=== PATIENT | female | born 1940 | race Caucasian/White ===

== ENCOUNTER 2016-09-30 21:52 | Emergency (ER) | payer BC, MEDICARE ==
--- NOTE | 2016-09-30 22:42 | ERPHSYRPT ---
- History of Present Illness Time Seen by Provider: 09/30/16 22:31 Source: patient Exam Limitations: no limitations Patient Subjective Stated Complaint: PT STATES THAT LAST NIGHT HER LEFT LEG BEGAN TO HURT, SHE WAS UNABLE TO SLEEP DUE TO THE PAIN. REPORTS TODAY SHE HAS NOTICED SEVERAL "BLOOD BLISTERS" TO THE LEFT, LOWER LEG. Triage Nursing Assessment: PT IS AOX3, AMBULATORY TO COT WITH NO DIFFICULTIES, RESPS ARE EASY AND NON LABORED, LUNG SOUNDS ARE CLEAR THROUGHOUT ALL HOWARD, RADIAL PULSES ARE STRONG AND EQUAL. PEDAL PULSES ARE STRONG AND REGULAR. SLIGHT NON-PITTING EDEMA NOTED TO BILATERAL LOWER EXTREMITIES WITH THE LEFT LOWER EXTREMITY BEING MORE PROMINENT. PAIN LOCALIZED TO THE LEFT CALF. SEVERAL SMALL RED AREAS NOTED TO THE LEFT LATERAL LEG. Physician History: 76-year-old white female arrives with complaints that last night she was having pain in her left leg especially in the calf and then today she noted several what appears to be ruptured varicosities on her left leg. Patient arrives with complaints that she is worried about having a DVT she is does state that she has some posterior calf pain which is worse when she dorsiflexes her left ankle. She is not having shortness of breath no chest pain no abdominal pain no nausea no vomiting no other complaints. Patient is on Plavix she does not take aspirin she is not on any other anticoagulants. Past medical history includes migraines, seizures, coronary artery disease, coronary artery stents, high blood pressure, diabetes type 2, arthritis, depression, degenerative disc disease, GERD, anxiety, depression. , Past surgical history includes cardiac catheter, cardiac stents, cholecystectomy, hysterectomy, back surgery. Method of Injury: unknown Occurred: yesterday Quality: other (worse yesterday improving today) Severity of Pain-Max: moderate Severity of Pain-Current: mild Lower Extremities Pain: leg: left Modifying Factors: Improves With: nothing Associated Symptoms: other (pain left calf) Allergies/Adverse Reactions: aspirin Allergy (Mild, Verified 02/19/12 08:08) celecoxib [From Celebrex] Allergy (Mild, Verified 02/19/12 08:08) codeine [Codeine] Allergy (Mild, Verified 02/19/12 08:08) Sulfa (Sulfonamide Antibiotics) [Sulfa(Sulfonamide Antibiotics)] Allergy (Mild, Verified 02/19/12 08:08) Home Medications: Clopidogrel Bisulfate 75 mg [PLAVIX 75 MG Tablet] 75 mg PO BID 09/30/16 [ History] Esomeprazole Magnesium [Nexium] 40 mg PO DAILY 09/30/16 [History] Gabapentin [Neurontin] 300 mg PO TID 09/30/16 [History] Levocetirizine Dihydrochloride 5 mg PO DAILY 09/30/16 [History] Metformin HCl 500 mg [Glucophage 500 MG] 500 mg PO DAILY 09/30/16 [History ] Metoprolol Tartrate 50 mg [Lopressor 50 MG] 50 mg PO BID 09/30/16 [History ] Piroxicam 20 mg PO HS 09/30/16 [History] Rosuvastatin Calcium [Crestor] 10 mg PO HS 09/30/16 [History] Tramadol HCl 50 mg [Ultram 50 mg] 50 mg PO Q6H PRN PRN 09/30/16 [History] Valsartan/Hydrochlorothiazide [Valsartan-Hctz 320-12.5 mg Tab] 1 each PO DAILY 09/30/16 [History] Hx Tetanus, Diphtheria Vaccination/Date Given: Yes Hx Influenza Vaccination/Date Given: Yes Hx Pneumococcal Vaccination/Date Given: Yes Immunizations Up to Date: Yes - Review of Systems Constitutional: No Fever, No Chills Eyes: No Symptoms Ears, Nose, & Throat: No Symptoms Respiratory: No Cough, No Dyspnea Cardiac: No Chest Pain, No Edema, No Syncope Abdominal/Gastrointestinal: No Abdominal Pain, No Nausea, No Vomiting, No Diarrhea Genitourinary Symptoms: No Dysuria Musculoskeletal: Other (pain left foot) Skin: Other (multiple what appear to be ruptured varicosities left leg) Neurological: No Dizziness, No Focal Weakness, No Sensory Changes Psychological: No Symptoms Endocrine: No Symptoms All Other Systems: Reviewed and Negative - Past Medical History Pertinent Past Medical History: Yes Neurological History: Seizures ENT History: Other Cardiac History: Hypertension, Other Respiratory History: No Pertinent History Endocrine Medical History: Diabetes Type II Musculoskeletal History: Fractures, Osteoarthritis GI Medical History: GERD History: Other Psycho-Social History: Anxiety, Depression Other Medical History: Pt has a stint in her heart. Notes previous fractured B ankles, L TKA - Past Surgical History Past Surgical History: Yes Cardiac: Cardiac Catheterization, Cardiac Stent Gastrointestinal: Cholecystectomy Musculoskeletal: Joint Replacement Female Surgical History: Hysterectomy Other Surgical History: BACK SURGERY X4 - Social History Smoking Status: Never smoker Exposure to second hand smoke: No Drug Use: none Patient Lives Alone: No - Nursing Vital Signs Nursing Vital Signs: Initial Vital Signs Temperature 98.6 F Temperature Source Oral Pulse Rate 66 Respiratory Rate 18 Blood Pressure [Left Arm] 161/76 Pain Intensity 0 - Physical Exam General Appearance: alert Eyes, Ears, Nose, Throat Exam: moist mucous membranes Neck Exam: non-tender, supple Cardiovascular/Respiratory Exam: chest non-tender, normal breath sounds, regular rate/rhythm, no respiratory distress Gastrointestinal/Abdominal Exam: non-tender, guarding Back Exam: normal inspection, No vertebral tenderness Hips Exam: bilateral: non-tender, normal inspection, normal range of motion, no evidence of injury Legs Exam: left leg: pain (pain left calf with palpation and dorsiflexion), bilateral leg: normal range of motion, no evidence of injury, other (multiple varicosities lower extremities) Knees Exam: bilateral knee: non-tender, normal inspection, normal range of motion, no evidence of injury Ankle Exam: bilateral ankle: non-tender, normal inspection, normal range of motion, no evidence of injury Foot Exam: bilateral foot: non-tender, normal inspection, normal range of motion , no evidence of injury DTR - Lower Extremities Exam: ankle (R): 2+, ankle (L): 2+ Neuro/Tendon Exam: normal sensation, normal motor functions Mental Status Exam: alert, oriented x 3, cooperative Skin Exam: normal color, other (multiple varicosities lower extremities several small ruptured varicosities left lower leg.) SpO2 Interpretation: normal SpO2: 95 Oxygen Delivery: Room Air - Course Nursing assessment & vital signs reviewed: Yes Ordered Tests: Active Orders 24 hr Category Date Time Status IV Insertion STAT Care 09/30/16 22:37 Active CBC W DIFF Stat Lab 09/30/16 22:48 Completed CMP Stat Lab 09/30/16 22:48 Completed D-DIMER QUANTITATION Stat Lab 09/30/16 22:48 Completed PROTIME WITH INR Stat Lab 09/30/16 22:48 Completed PTT Stat Lab 09/30/16 22:48 Completed Lab/Rad Data: Laboratory Result Diagrams 09/30/16 22:48 09/30/16 22:48 Laboratory Results 07/11/17 07/11/17 07/11/17 Range/Units 22:48 22:48 22:48 WBC 8.9 (4.0-10.5) K/mm3 RBC 4.09 L (4.1-5.4) M/mm3 Hgb 13.4 (12.0-16.0) gm/dl Hct 40.3 (35-47) % MCV 98.5 (78-100) fl MCH 32.7 H (26-32) pg MCHC 33.3 (32-36) g/dl RDW 14.3 H (11.5-14.0) % Plt Count 274 (150-450) K/mm3 MPV 9.5 (6-9.5) fl Gran % 56.2 (36.0-66.0) % Lymphocytes % 30.6 (24.0-44.0) % Monocytes % 10.3 (0.0-12.0) % Eosinophils % 2.8 (0.00-5.0) % Basophils % 0.1 (0.0-0.4) % Basophils # 0.01 (0-0.4) INR 0.96 (0.8-3.0) APTT 31.8 (25.3-37.0) SECONDS D-Dimer 298 (0-500) ng/mL Sodium 143 (136-145) mEq/L Potassium 4.1 (3.5-5.1) mEq/L Chloride 106 (98-107) mEq/L Carbon Dioxide 26.8 (21-32) mEq/L Anion Gap 14.0 (5-15) MEQ/L BUN 26 H (9-20) mg/dL Creatinine 1.14 (0.55-1.30) mg/dl Estimated GFR 50 ML/MIN Glucose 139 H (70-110) MG/DL Calcium 9.5 (8.5-10.1) mg/dL Total Bilirubin 0.40 (0.2-1.0) mg/dL AST 14 L (15-37) U/L ALT 24 (12-78) U/L Alkaline Phosphatase 86 (46-116) U/L Serum Total Protein 6.7 (6.4-8.2) gm/dL Albumin 3.9 (3.4-5.0) g/dL - Progress Progress: improved Progress Note: 09/30/16 23:25 76-year-old white female with the posterior leg (calf) pain yesterday which seems to be improving noted to have what appears to be some ruptured varicosities on the left lower leg today which appear to be stable on examination. Patient is concerned about possible blood clot she did have a positive Homans sign at home she has some tenderness in her calf and stated that she had pain with dorsiflexion of her left ankle dorsal pedal posterior tibial pulses were intact. Patient had a normal d-dimer of 298 INR is 0.96 chemistry essentially normal with the exception of a BUN of 26 and a creatinine of 1.14 and a glucose of 139. Patient is actually states she is feeling much better she was yesterday. Will go ahead and discharge the patient. Return home rest elevate her leg. Tylenol every 4 hours as needed for pain. Patient to follow-up with her family doctor if symptoms persist more than 24- 48 hours or problems. She is to return for acute distress or for severe symptoms. - Departure Time of Disposition: 23:28 Departure Disposition: Home Clinical Impression: Left leg pain, ruptured varicosities left leg Condition: Fair Critical Care Time: No Referrals: LUIS M BRANHAM [Primary Care Provider] - Additional Instructions: Return home. Elevate your left leg 24-48 hours. Tylenol every 4 hours as needed for pain. Follow-up with your family doctor if symptoms are worse no better in 24-48 hours or persist longer than 72 hours. Return for acute distress or for severe symptoms.
[2016-09-30 22:53] LABS: BASOPHIL % 0.1 % (0.0-0.4); Eosinophil % 2.8 % (0.00-5.0); Granulocytes % 56.2 % (36.0-66.0); Lymphocytes % 30.6 % (24.0-44.0); Mean Cell Volume 98.5 fl (78-100); Mean Platelet Volume 9.5 fl (6-9.5); Monocytes % 10.3 % (0.0-12.0); Platelet Count 274 K/mm3 (150-450); Red Blood Count 4.09 M/mm3 (4.1-5.4); Red Cell Distribution Width 14.3 % (11.5-14.0); White Blood Count 8.9 K/mm3 (4.0-10.5)
[2016-09-30 23:00] LABS: Mean Corpuscular Hemoglobin 32.7 pg (26-32)
[2016-09-30 23:04] LABS: INR 0.96 (0.8-3.0); PROTIME 10.8 SECONDS (9.95-12.35)
[2016-09-30 23:07] LABS: PTT 31.8 SECONDS (25.3-37.0)
[2016-09-30 23:12] LABS: ALBUMIN 3.9 g/dL (3.4-5.0); BILIRUBIN,TOTAL 0.4 mg/dL (0.2-1.0); Carbon Dioxide 26.8 mEq/L (21-32); Potassium 4.1 mEq/L (3.5-5.1); Total Protein 6.7 gm/dL (6.4-8.2)
[2016-09-30 23:50] VITALS: BP 170/90; PULSE 72; O2SAT 97
== END 2016-09-30 23:50 | disposition home or self-care (01) ==
LOC: ED 21:52
DX: M79.605 Pain in left leg (principal); I83.812 Varicose veins of left lower extremity with pain; I25.10 Atherosclerotic heart disease of native coronary artery without angina pectoris; I10 Essential (primary) hypertension; E11.9 Type 2 diabetes mellitus without complications; Z79.899 Other long term (current) drug therapy
CPT/HCPCS: 36415; 80053; 85025; 85379; 85610; 85730; 99281; 99282

== ENCOUNTER 2016-11-20 11:07 | Emergency (ER) | payer BC, MEDICARE ==
[2016-11-20 11:21] VITALS: PULSE 70
[2016-11-20] MEDS ORDERED: Adacel Vial IM ONE ×2 (11:29→11:36)
--- NOTE | 2016-11-20 11:35 | ERPHSYRPT ---
- History of Present Illness Time Seen by Provider: 11/20/16 11:24 Source: patient, family () Patient Subjective Stated Complaint: "I was scratched by my cat and it will not stop bleeding" Triage Nursing Assessment: Pt alert and oriented X 3, skin pwd pt ambulates without diffculty, able to speak in full sentences. pt has approx 1.5 inch scratch on rt ankle, bleeding is controlled with pressure. Physician History: CC: cat scratch Hx: 76 y/o patient of Dr Branham was scratched on the right ankle this AM by a new cat. It was bleeding so came to ER. She takes plavix. Unsure last tetanus. Not allergic to PCN. No other injuries. Bleeding better since arrival in ER. Occurred: just prior to arrival Allergies/Adverse Reactions: aspirin Allergy (Mild, Verified 02/19/12 08:08) celecoxib [From Celebrex] Allergy (Mild, Verified 02/19/12 08:08) codeine [Codeine] Allergy (Mild, Verified 02/19/12 08:08) Sulfa (Sulfonamide Antibiotics) [Sulfa(Sulfonamide Antibiotics)] Allergy (Mild, Verified 11/20/16 11:20) Home Medications: Clopidogrel Bisulfate 75 mg [PLAVIX 75 MG Tablet] 75 mg PO BID 09/30/16 [ History] Esomeprazole Magnesium [Nexium] 40 mg PO DAILY 09/30/16 [History] Gabapentin [Neurontin] 300 mg PO TID 09/30/16 [History] Metformin HCl 500 mg [Glucophage 500 MG] 500 mg PO DAILY 09/30/16 [History ] Metoprolol Tartrate 50 mg [Lopressor 50 MG] 50 mg PO BID 09/30/16 [History ] Rosuvastatin Calcium [Crestor] 10 mg PO HS 09/30/16 [History] Valsartan/Hydrochlorothiazide [Valsartan-Hctz 320-12.5 mg Tab] 1 each PO DAILY 09/30/16 [History] Hx Tetanus, Diphtheria Vaccination/Date Given: No Hx Influenza Vaccination/Date Given: Yes Hx Pneumococcal Vaccination/Date Given: Yes Immunizations Up to Date: Yes - Review of Systems Constitutional: No Symptoms Respiratory: No Dyspnea Abdominal/Gastrointestinal: No Nausea, No Vomiting Skin: Skin Lesions (cat scratches) Neurological: No Focal Weakness, No Parasthesia - Past Medical History Pertinent Past Medical History: Yes Neurological History: Seizures ENT History: Other Cardiac History: Hypertension, Other Respiratory History: No Pertinent History Endocrine Medical History: Diabetes Type II Musculoskeletal History: Fractures, Osteoarthritis GI Medical History: GERD History: Other Psycho-Social History: Anxiety, Depression Other Medical History: Cardiac stenting. 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) - Nursing Vital Signs Nursing Vital Signs: Initial Vital Signs Temperature 98.2 F 11/20/16 11:15 Pulse Rate 70 11/20/16 11:15 Respiratory Rate 18 11/20/16 11:15 Blood Pressure 193/91 11/20/16 11:15 O2 Sat by Pulse Oximetry 95 11/20/16 11:15 Pain Scale Pain Intensity 0 - Physical Exam General Appearance: alert, other (pleasant lady) Cardiovascular/Respiratory Exam: regular rate/rhythm Neuro/Tendon Exam: normal sensation, normal motor functions Mental Status Exam: alert, oriented x 3, cooperative Skin Exam: warm, dry SpO2 Interpretation: normal SpO2: 95 Oxygen Delivery: Room Air Comments: 2 scratches left medial ankle area. Bleeding controlled. Linear. No FB noted. Pulses intact. Trace edema both legs. - Course Nursing assessment & vital signs reviewed: Yes Ordered Tests: Active Orders 24 hr Category Date Time Status Wound Care STAT Care 11/20/16 11:29 Active - Progress Progress Note: 11/20/16 11:33 Will update tetanus, cleanse, dressing. Counseled pt/family regarding: diagnosis, need for follow-up - Departure Time of Disposition: 11:33 Departure Disposition: Home Clinical Impression: cat scratch left ankle Condition: Stable Critical Care Time: No Referrals: LUIS M BRANHAM [Primary Care Provider] - Instructions: Abrasion Additional Instructions: Rx augmentin. Change dressing daily starting tomorrow. Make sure no sign of infection. Prescriptions: Amox Tr/Potass Clav. 875 mg [Augmentin 875-125 Tablet] 875 mg PO BID #10 tablet
[2016-11-20 11:53] VITALS: BP 190/88; O2SAT 99
== END 2016-11-20 11:57 | disposition home or self-care (01) ==
LOC: ED 11:07
DX: S90.512A Abrasion, left ankle, initial encounter (principal); W55.03XA Scratched by cat, initial encounter; I10 Essential (primary) hypertension; E11.9 Type 2 diabetes mellitus without complications
CPT/HCPCS: 90471; 90715; 99283

== ENCOUNTER 2017-09-05 22:33 | Emergency (ER) | payer MEDICARE ==
[2017-09-05 22:44] VITALS: BP 189/89; PULSE 74; O2SAT 95
[2017-09-05] MEDS ORDERED: BENADRYL 50 MG/ML IM ONE (22:53)
[2017-09-05] MEDS ORDERED: solu-MEDROL 125 MG IM ONE (22:53)
[2017-09-05] MEDS ORDERED: BENADRYL 50 MG/ML ONE (22:56)
[2017-09-05] MEDS ORDERED: solu-MEDROL 125 MG ONE (22:56)
--- NOTE | 2017-09-05 22:59 | ERPHSYRPT ---
- History of Present Illness Time Seen by Provider: 09/05/17 22:48 Source: patient Exam Limitations: no limitations Patient Subjective Stated Complaint: pt reports taking new cholesterol medication "Zetia" approx one week ago, began itching. reports she stopped taking it and her itching improved, reports her doctor told her to resume the medication and she is started with itching once again. states she cannot sleep due to itching. Triage Nursing Assessment: pt is aox3, pupils perrl, resps easy and non labored , lung sounds are clear throughout, pt afebrile, radial pulses strong and equal.abd is soft and non tender. pt skin is pink warm and dry. diffuse hives noted to the arms, legs and back. skin is intact. Physician History: 77-year-old white female arrives with complaint of itching and a rash symptoms since today. According to the patient she was placed on a new cholesterol medicine one week ago (Zetia), she states that she developed a rash she was told by her physician stopped taking it in the rash went away. Patient states that she took another one today now she has a rash again he states she is itching. She feels like she cannot sleep because of the itching. She does not have any shortness of breath. Rash is located on her back, arms, legs. Past medical history includes high blood pressure, GERD, arthritis, anxiety, depression, cardiac stent Diabetes type 2 controlled with metformin Past surgical history includes cardiac catheter, cardiac stent, cholecystectomy , hysterectomy, back surgery Timing/Duration: other (symptoms one week ago after takingZetia, resolved after stopping, resumed after taking it again today) Modifying Factors: Improves With: medication (zetia) Associated Symptoms: rash (rash on arms, legs, back), No nausea, No vomiting, No abdominal pain, No shortness of breath, No heartburn, No diaphoresis, No cough, No chills, No chest pain, No fever, No headaches, No loss of appetite, No malaise, No syncope, No seizure Allergies/Adverse Reactions: aspirin Allergy (Mild, Verified 02/19/12 08:08) celecoxib [From Celebrex] Allergy (Mild, Verified 02/19/12 08:08) codeine [Codeine] Allergy (Mild, Verified 02/19/12 08:08) Sulfa (Sulfonamide Antibiotics) [Sulfa(Sulfonamide Antibiotics)] Allergy (Mild, Verified 11/20/16 11:20) Iodinated Contrast- Oral and IV Dye Allergy (Verified 09/05/17 22:45) Home Medications: Clopidogrel Bisulfate 75 mg [PLAVIX 75 MG Tablet] 75 mg PO BID 09/30/16 [ History] Esomeprazole Magnesium [Nexium] 40 mg PO DAILY 09/30/16 [History] Gabapentin [Neurontin] 300 mg PO TID 09/30/16 [History] Metformin HCl 500 mg [Glucophage 500 MG] 500 mg PO DAILY 09/30/16 [History ] Metoprolol Tartrate 50 mg [Lopressor 50 MG] 50 mg PO BID 09/30/16 [History ] Rosuvastatin Calcium [Crestor] 10 mg PO HS 09/30/16 [History] Valsartan/Hydrochlorothiazide [Valsartan-Hctz 320-12.5 mg Tab] 1 each PO DAILY 09/30/16 [History] Hx Tetanus, Diphtheria Vaccination/Date Given: Yes Hx Influenza Vaccination/Date Given: No Hx Pneumococcal Vaccination/Date Given: No Immunizations Up to Date: Yes - Review of Systems Constitutional: No Fever, No Chills Eyes: No Symptoms Ears, Nose, & Throat: No Symptoms Respiratory: No Cough, No Dyspnea Cardiac: No Chest Pain, No Edema, No Syncope Abdominal/Gastrointestinal: No Abdominal Pain, No Nausea, No Vomiting, No Diarrhea Genitourinary Symptoms: No Dysuria Musculoskeletal: No Back Pain, No Neck Pain Skin: Rash (rash on arms, legs, back itching) Neurological: No Dizziness, No Focal Weakness, No Sensory Changes Psychological: No Symptoms Endocrine: No Symptoms All Other Systems: Reviewed and Negative - Past Medical History Pertinent Past Medical History: Yes Neurological History: Seizures ENT History: Other Cardiac History: Hypertension, Other Respiratory History: No Pertinent History Endocrine Medical History: Diabetes Type II Musculoskeletal History: Fractures, Osteoarthritis GI Medical History: GERD History: Other Psycho-Social History: Anxiety, Depression Other Medical History: Cardiac stenting. 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 - Female History Hx Now: No - Nursing Vital Signs Nursing Vital Signs: Initial Vital Signs Temperature 98.1 F 09/05/17 22:36 Pulse Rate 74 09/05/17 22:36 Respiratory Rate 20 09/05/17 22:36 Blood Pressure 189/89 09/05/17 22:36 O2 Sat by Pulse Oximetry 95 09/05/17 22:36 - Physical Exam General Appearance: no apparent distress, alert Eye Exam: PERRL/EOMI, eyes nml inspection Ears, Nose, Throat Exam: normal ENT inspection, TMs normal, pharynx normal, moist mucous membranes Neck Exam: normal inspection, non-tender, supple, full range of motion Respiratory Exam: normal breath sounds, lungs clear, No respiratory distress Cardiovascular Exam: regular rate/rhythm, normal heart sounds, normal peripheral pulses Gastrointestinal/Abdomen Exam: soft, normal bowel sounds, No tenderness, No mass Back Exam: normal inspection, normal range of motion, No CVA tenderness, No vertebral tenderness Extremity Exam: normal inspection, normal range of motion, pelvis stable Neurologic Exam: alert, oriented x 3, cooperative, 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 as tested, normal mood/affect, nml cerebellar function, nml station & gait, sensation nml, No motor deficits Skin Exam: warm, rash (erythematous raised rash on back, arms , legs) SpO2 Interpretation: normal (95%) SpO2: 95 Oxygen Delivery: Room Air - Course Nursing assessment & vital signs reviewed: Yes Ordered Tests: Medication Summary Generic Name Dose Route Start Last Admin Trade Name Tomq PRN Reason Stop Dose Admin Diphenhydramine HCl 50 mg 09/05/17 22:53 Benadryl 50 Mg/Ml IM 09/05/17 22:54 STAT ONE Methylprednisolone Sodium Succinate 125 mg 09/05/17 22:53 Solu-Medrol 125 Mg IM 09/05/17 22:54 STAT ONE - Progress Progress: improved Progress Note: 09/05/17 22:59 This is a 77-year-old white female who arrives with complaint of a rash after taking Zetia, this occurred initially one week ago and resolved after stopping the medicine. She took Zetia again today and developed a rash. She has an erythematous raised rash on her arms, legs, back which is itching her. She states she cannot sleep because of this. Patient does have diabetes type 2 and takes metformin for this. Will go ahead and give patient one injection of Solu-Medrol 125 mg IM. Will give patient Benadryl 50 mg IM. Patient to stop Zetia, continue Benadryl 25-50 mg orally every 6 hours for 2-3 days. Follow-up with her family doctor. - Departure Time of Disposition: 23:01 Departure Disposition: Home Clinical Impression: Rash Allergic reaction caused by a drug Qualifiers: Encounter type: initial encounter Qualified Code(s): T78.40XA - Allergy, unspecified, initial encounter Condition: Fair Critical Care Time: No Referrals: DAVID OLIVO [Primary Care Provider] - Instructions: Adverse Drug Reactions, Adult (DC) Additional Instructions: Return home. Stop Zetia Plenty of fluids. Benadryl 25-50 mg orally every 6 hours. Follow-up with your family doctor. Return for acute distress or for severe symptoms.
[2017-09-05] MEDS ORDERED: BENADRYL 25 MG CAPSULE PO ONE (23:09)
[2017-09-05] MEDS ORDERED: BENADRYL 25 MG CAPSULE ONE (23:12)
== END 2017-09-05 23:18 | disposition home or self-care (01) ==
LOC: ED 22:33
DX: L27.0 Generalized skin eruption due to drugs and medicaments taken internally (principal); T46.6X5A Adverse effect of antihyperlipidemic and antiarteriosclerotic drugs, initial encounter; E11.9 Type 2 diabetes mellitus without complications; Z79.84 Long term (current) use of oral hypoglycemic drugs; Z79.01 Long term (current) use of anticoagulants; Z79.899 Other long term (current) drug therapy
CPT/HCPCS: 96372; 99284; J1200; J2930; A9270-GY

== ENCOUNTER 2020-10-26 19:33 | Emergency (ER) | payer MEDICARE ==
--- NOTE | 2020-10-26 19:45 | ERPHSYRPT ---
- History of Present Illness Time Seen by Provider: 10/26/20 19:45 Source: patient, family Exam Limitations: no limitations Physician History: This is a pleasant 80-year-old white female who is right-handed and was out fishing when she slipped and fell and got her left index finger caught in a guardrail. She has a laceration present. She is on Plavix. She was concerned that she might need stitches. She has full control of her left index finger. She did not hit her head. She has no loss of consciousness. Her tetanus status is up-to-date. Timing/Duration: today Quality: painful Severity: mild Location: hands (Left index finger, palmar aspect, distal) Associated Symptoms: denies symptoms Allergies/Adverse Reactions: aspirin Allergy (Mild, Verified 10/26/20 19:50) celecoxib [From Celebrex] Allergy (Mild, Verified 10/26/20 19:50) codeine [Codeine] Allergy (Mild, Verified 10/26/20 19:50) Sulfa (Sulfonamide Antibiotics) [Sulfa(Sulfonamide Antibiotics)] Allergy (Mild, Verified 10/26/20 19:50) Iodinated Contrast Media [Iodinated Contrast- Oral and IV Dye] Allergy (Verified 10/26/20 19:50) Home Medications: Clopidogrel Bisulfate 75 mg [PLAVIX 75 MG Tablet] 75 mg PO BID 09/30/16 [History] Esomeprazole Magnesium [Nexium] 40 mg PO DAILY 09/30/16 [History] Gabapentin [Neurontin] 300 mg PO TID 09/30/16 [History] Metformin HCl 500 mg [Glucophage 500 MG] 500 mg PO DAILY 09/30/16 [History] Metoprolol Tartrate 50 mg [Lopressor 50 MG] 50 mg PO BID 09/30/16 [History] Rosuvastatin Calcium [Crestor] 10 mg PO HS 09/30/16 [History] Valsartan/Hydrochlorothiazide [Valsartan-Hctz 320-12.5 mg Tab] 1 each PO DAILY 09/30/16 [History] Hx Tetanus, Diphtheria Vaccination/Date Given: Yes Hx Influenza Vaccination/Date Given: No Hx Pneumococcal Vaccination/Date Given: No Travel Risk - International Travel Have you traveled outside of the country in past 3 weeks: No - Coronavirus Screening Are you exhibiting any of the following symptoms?: No Close contact with a COVID-19 positive Pt in past 14-21 Days: No - Review of Systems Constitutional: No Symptoms Eyes: No Symptoms Ears, Nose, & Throat: No Symptoms Respiratory: No Symptoms Cardiac: No Symptoms Abdominal/Gastrointestinal: No Symptoms Genitourinary Symptoms: No Symptoms Musculoskeletal: Fall, Injury (Left index finger) Skin: Other (Left index finger, the distal palmar aspect) Neurological: No Symptoms Psychological: No Symptoms Endocrine: No Symptoms Hematologic/Lymphatic: No Symptoms Immunological/Allergic: No Symptoms All Other Systems: Reviewed and Negative - Past Medical History Pertinent Past Medical History: Yes Neurological History: Seizures ENT History: Other Cardiac History: Hypertension, Other Respiratory History: No Pertinent History Endocrine Medical History: Diabetes Type II Musculoskeletal History: Fractures, Osteoarthritis GI Medical History: GERD History: Other Psycho-Social History: Anxiety, Depression Other Medical History: Cardiac stenting. 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 - Nursing Vital Signs Nursing Vital Signs: Initial Vital Signs Temperature 97.6 F 10/26/20 19:47 Pulse Rate 65 10/26/20 19:47 Respiratory Rate 18 10/26/20 19:47 Blood Pressure 126/109 10/26/20 19:47 O2 Sat by Pulse Oximetry 97 10/26/20 19:47 Pain Scale Pain Intensity 2 - Physical Exam General Appearance: no apparent distress, alert, anxiety Eye Exam: PERRL/EOMI, eyes nml inspection Ears, Nose, Throat Exam: normal ENT inspection, moist mucous membranes Neck Exam: normal inspection, non-tender, supple, full range of motion Respiratory Exam: airway intact, No chest tenderness, No respiratory distress Gastrointestinal/Abdomen Exam: No tenderness Pelvic Exam: not done Rectal Exam: not done Extremity Exam: normal range of motion, lacerations (Cox aspect left index finger with what appears to be an island of skin tissue that was "pinched". No active bleeding present. No foreign body. No tendon injury. Patient is neurovascularly intact. There is no flap present. The skin island is axially oriented and oval in shape. It is intact.) Neurologic Exam: alert, oriented x 3, cooperative, founder II-XII nml as tested, normal mood/affect, nml cerebellar function, nml station & gait, sensation nml Skin Exam: warm, dry Lymphatic Exam: No adenopathy SpO2 Interpretation: normal O2 Delivery: Room Air Ordered Tests: Medication Summary Discontinued Medications Generic Name Dose Route Start Last Admin Trade Name Freq PRN Reason Stop Dose Admin Bacitracin Zinc 0.9 gm 10/26/20 20:01 Baciguent Packet TP 10/26/20 20:02 STAT ONE Bacitracin Zinc Confirm 10/26/20 20:13 Baciguent Packet Administered 10/26/20 20:14 Dose 1 gm .ROUTE .STK-MED ONE - Progress Progress: improved, pain not gone completely Progress Note: 10/26/20 20:18 Left index finger palmar aspect distal digit pad with axially oriented skin island that is intact. No suturing is necessary. Counseled pt/family regarding: diagnosis - Departure Departure Disposition: Home Clinical Impression: Laceration of left index finger Condition: Stable Critical Care Time: No Referrals: MARIELENA STUART MD [Primary Care Provider] - Additional Instructions: Keep current pressure dressing in place for 48 hours. After 48 hours, remove the dressing completely and wash the site with soap and water. Blot dry use a hairdryer. Apply antibiotic ointment and then rebandage site. The skin island that is present may be discolored but should pink up with time. Do not be alarmed if the skin island becomes darker and then forms a scab and sloughs off. Return to the emergency department or follow-up with your primary care physician if your finger itself becomes red swollen or warm. Use Tylenol and ice for pain control.
[2020-10-26] MEDS ORDERED: BACIGUENT PACKET TP ONE (20:01)
[2020-10-26] MEDS ORDERED: BACIGUENT PACKET ONE (20:13)
[2020-10-26 20:28] VITALS: BP 184/74; PULSE 60; O2SAT 98
== END 2020-10-26 20:27 | disposition home or self-care (01) ==
LOC: ED 19:33
DX: S61.211A Laceration without foreign body of left index finger without damage to nail, initial encounter (principal); W01.118A Fall on same level from slipping, tripping and stumbling with subsequent striking against other sharp object, initial encounter; Y93.89 Activity, other specified; Y92.89 Other specified places as the place of occurrence of the external cause; Z79.899 Other long term (current) drug therapy; E11.9 Type 2 diabetes mellitus without complications
CPT/HCPCS: 99282; A9270-GY

== ENCOUNTER 2022-08-17 09:09 | Emergency (ER) | payer MEDICARE ==
[2022-08-17 10:25] LABS: Hematocrit 32.2 % (35-47); Hemoglobin 10.1 g/dL (12.0-16.0); Mean Cell Volume 105.2 fL (78-100); Mean Corpuscular Hgb Concent. 31.4 g/dL (32-36); Mean Platelet Volume 9.8 fL (7.5-11.0); Platelet Count 266 x10^3/uL (150-450); Red Blood Count 3.06 x10^6/uL (4.1-5.4); Red Cell Distribution Width 14.6 % (11.5-14.0); White Blood Count 6.1 x10^3/uL (4.0-10.5)
[2022-08-17 10:40] LABS: ALBUMIN 3.2 g/dL (3.5-5.0); ANION GAP 12.5 MEQ/L (5-15); BILIRUBIN,TOTAL 0.5 mg/dL (0.2-1.3); Calcium 8.4 mg/dL (8.4-10.2); Creatinine 1 1.34 mg/dL (0.52-1.04); EST GLOMERULAR FILTRATION RATE 40.4 ML/MIN; Potassium 4.7 mmol/L (3.5-5.1); Total Protein 5.7 g/dL (6.3-8.2)
[2022-08-17 11:47] LABS: Appearance Clear (Clear); Bacteria None Seen /HPF (None Seen); Bilirubin Negative (Negative); Blood Negative (Negative); Epithelial Cells None Seen /HPF (None Seen); Glucose, Urine Negative (Negative); Hyaline Casts NONE SEEN /LPF (0-2); Ketones Negative (Negative); Leukocyte Esterase Trace (Negative); Nitrite Negative (Negative); Ph 5.5 (4.6-8.0); Protein,Urine Dip Negative (Negative); RBC 0-2 /HPF (0-5); Specific Gravity 1.015 (1.005-1.030); WBC 0-2 /HPF (0-5)
[2022-08-17] MEDS ORDERED: TYLENOL 325 MG PO STA (11:51)
[2022-08-17] MEDS ORDERED: TYLENOL 325 MG ONE (11:52)
--- NOTE | 2022-08-17 11:54 | ERPHSYRPT ---
- History of Present Illness Time Seen by Provider: 08/17/22 10:27 Source: patient Exam Limitations: no limitations Patient Subjective Stated Complaint: Pt tripped on her front porch steps and landed on the porch causing bruising to her left eye and left cheek bone Triage Nursing Assessment: Pt brought to the ER by her sister, hypertensive, rates pain as 5/10, bruising above the left eye in the brow area and the left cheek bone, pt is on blood thinners, pt also made a comment that she thinks that Eliquis is making her poop blood because her stools are black and she had been out of it for a little bit and it had stopped at that time and they were black prior to that when she was on it, she has not told her doctor of this yet, pt also has been falling a lot lately and her sister has had to come and stay with her for that reason to keep an eye on her and make sure that she is safe, pulses normal, skin n/w/d, denies LOC, denies N&V, denies any other injuries Physician History: 82 years old female with history of atrial fibrillation on Eliquis, hypertension, hyperlipidemia presented in the ER after she fell on her porch step and got hit on the left forehead/maxilla. Patient reports mild to moderate sharp pain with palpation and no difficulty movements of left eyeball. Denies any loss of consciousness. No numbness tingling weakness of extremities. No difficulty speech or visual symptoms. Patient does not report chest pain palpitations or shortness of breath, does report having dark stools. No diz ziness or lightheadedness. Occurred: this morning Reason for Fall: tripped Injuries/Pain Location: face Loss of Consciousness: no loss of consciousness Quality: sharpness Severity of Pain-Max: moderate Severity of Pain-Current: moderate Modifying Factors: Improves With: nothing Associated Symptoms (Fall): denies symptoms Allergies/Adverse Reactions: aspirin Allergy (Mild, Verified 08/17/22 09:29) celecoxib [From Celebrex] Allergy (Mild, Verified 08/17/22 09:29) codeine [Codeine] Allergy (Mild, Verified 08/17/22 09:29) Sulfa (Sulfonamide Antibiotics) [Sulfa(Sulfonamide Antibiotics)] Allergy (Mild, Verified 08/17/22 09:29) Iodinated Contrast Media [Iodinated Contrast- Oral and IV Dye] Allergy (Verified 08/17/22 09:29) Home Medications: Rosuvastatin Calcium [Crestor] 10 mg PO HS 09/30/16 [History] Valsartan/Hydrochlorothiazide [Valsartan-Hctz 320-12.5 mg Tab] 0.5 each PO BID 09/30/16 [History] Apixaban [Eliquis] 5 mg PO BID 08/17/22 [History] Indomethacin 50 mg PO BID 08/17/22 [History] Metoprolol Succinate 25 mg PO BID 08/17/22 [History] Omeprazole 20 mg PO DAILY 08/17/22 [History] PANTOPRAZOLE 40 mg Tablet [Protonix 40MG Tablet] 40 mg PO DAILY 08/17/22 [History] Hx Tetanus, Diphtheria Vaccination/Date Given: Yes (2016) Hx Influenza Vaccination/Date Given: No Hx Pneumococcal Vaccination/Date Given: No Travel Risk - International Travel Have you traveled outside of the country in past 3 weeks: No - Coronavirus Screening Are you exhibiting any of the following symptoms?: No Close contact with a COVID-19 positive Pt in past 14-21 Days: No - Vaccine Status Have you recieved a Covid-19 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: 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 - Vaccination Dates Date of 2cond Vaccination (if applicable): 2020 - Review of Systems Constitutional: No Symptoms Eyes: No Symptoms Ears, Nose, & Throat: No Symptoms Respiratory: No Symptoms Cardiac: No Symptoms Abdominal/Gastrointestinal: No Symptoms Genitourinary Symptoms: No Symptoms Musculoskeletal: Arthralgias Skin: No Symptoms Neurological: Headache Psychological: No Symptoms Hematologic/Lymphatic: No Symptoms Immunological/Allergic: No Symptoms - Past Medical History Pertinent Past Medical History: Yes Neurological History: Seizures ENT History: Other Cardiac History: Arrhythmia, Coronary Artery Disease, High Cholesterol, Hypertension Respiratory History: Bronchitis Endocrine Medical History: Diabetes Type II Musculoskeletal History: Arthritis, Fractures GI Medical History: GERD History: Other Psycho-Social History: Anxiety, Depression Female Reproductive Disorders: No Pertinent History Other Medical History: SURGICAL HISTORY: 2 HEART CATHERIZATIONS WITH STENT PLACEMENT, LUMBAR FUSION 2007, RIGHT EYE SURGERY (POST INCIDENT), ORIF ON EACH ANKLE (DIFFERENT OCCASIONS), GALLBLADDER REMOVED. MEDICAL HISTORY: KIDNEY DISEASE - Past Surgical History Past Surgical History: Yes Neuro Surgical History: No Pertinent History Cardiac: Cardiac Catheterization, Cardiac Stent Respiratory: No Pertinent History Gastrointestinal: Cholecystectomy Genitourinary: No Pertinent History Musculoskeletal: Joint Replacement Female Surgical History: Hysterectomy Other Surgical History: BACK SURGERY X4 - Social History Smoking Status: Never smoker Exposure to second hand smoke: No Drug Use: none Patient Lives Alone: No - Nursing Vital Signs Nursing Vital Signs: Initial Vital Signs Temperature 97.7 F 08/17/22 09:12 Pulse Rate 67 08/17/22 09:12 Blood Pressure 179/103 08/17/22 09:12 O2 Sat by Pulse Oximetry 95 08/17/22 09:12 Pain Scale Pain Intensity 2 - [place] Coma Score Best Eye Response ([place]): (4) open spontaneously Best Verbal Response ([place]): (5) oriented Best Motor Response ([place]): (6) obeys commands [place] Total: 15 - Physical Exam General Appearance: no apparent distress, alert Head Injury: contusions, swelling, tenderness (Left zygomatic arch/forehead.), No active bleeding ENT Exam: airway nml, No evidence of ENT injury, No dental injury Neck Exam: supple, trachea midline, normal alignment, c-collar in place (In the ER) Respiratory/Chest Exam: normal breath sounds, respiratory distress, No chest tenderness Cardiovascular Exam: normal heart sounds, regular rate/rhythm Gastrointestinal Exam: soft, normal bowel sounds, No tenderness Back Exam: normal inspection Extremity Exam: normal inspection, normal range of motion Neurologic Exam: alert, oriented x 3, cooperative, veneer redrier II-XII nml as tested, normal mood/affect, sensation nml, No motor deficits Skin Exam: normal color SpO2 Interpretation: normal SpO2: 95 O2 Delivery: Room Air Ordered Tests: Active Orders 24 hr Category Date Time Status EKG-ER Only STAT Care 08/17/22 09:50 Active CERVICAL SPINE WO CONTRAST [CT] Stat Exams 08/17/22 10:31 Completed CHEST 1 VIEW (PORTABLE) Stat Exams 08/17/22 10:31 Taken HEAD WITHOUT CONTRAST [CT] Stat Exams 08/17/22 10:31 Completed CBC Stat Lab 08/17/22 10:20 Completed CMP Stat Lab 08/17/22 10:20 Completed TROPONIN Q4H Lab 08/17/22 10:20 Completed TROPONIN Q4H Lab 08/17/22 10:20 Received TROPONIN Q4H Lab 08/17/22 18:00 Ordered TROPONIN Q4H Lab 08/17/22 22:00 Ordered UA W/RFX UR CULTURE Stat Lab 08/17/22 11:40 Completed Transfer Order Routine Transfer 08/17/22 Ordered Medication Summary Discontinued Medications Generic Name Dose Route Start Last Admin Trade Name Andrade PRN Reason Stop Dose Admin Acetaminophen 650 mg 08/17/22 11:51 08/17/22 11:53 Acetaminophen 325 Mg Tablet PO 08/17/22 11:52 650 mg STAT STA Administration Acetaminophen Confirm 08/17/22 11:52 Acetaminophen 325 Mg Tablet Administered 08/17/22 11:53 Dose 650 mg .ROUTE .[employer] Lab/Rad Data: Laboratory Result Diagrams 08/17/22 10:20 08/17/22 10:20 Laboratory Results 08/17/22 08/17/22 08/17/22 Range/Units 11:40 10:20 10:20 WBC (4.0-10.5) x10^3/uL RBC (4.1-5.4) x10^6/uL Hgb (12.0-16.0) g/dL Hct (35-47) % MCV (78-100) fL MCH (26-32) pg MCHC (32-36) g/dL RDW (11.5-14.0) % Plt Count (150-450) x10^3/uL MPV (7.5-11.0) fL Sodium 137 (137-145) mmol/L Potassium 4.7 (3.5-5.1) mmol/L Chloride 105 (98-107) mmol/L Carbon Dioxide 24 (22-30) mmol/L Anion Gap 12.5 (5-15) MEQ/L BUN 45 H (7-17) mg/dL Creatinine 1.34 H (0.52-1.04) mg/dL Estimated GFR 40.4 ML/MIN Glucose 108 H (74-106) mg/dL Calcium 8.4 (8.4-10.2) mg/dL Total Bilirubin 0.50 (0.2-1.3) mg/dL AST 39 H (14-36) U/L ALT 50 H (0-35) U/L Alkaline Phosphatase 88 (38-126) U/L Troponin I < 0.012 (0.000-0.034) ng/mL Serum Total Protein 5.7 L (6.3-8.2) g/dL Albumin 3.2 L (3.5-5.0) g/dL Urine Color Yellow (Yellow) Urine Appearance Clear (Clear) Urine pH 5.5 (4.6-8.0) Ur Specific Paicines 1.015 (1.005-1.030) Urine Protein Negative (Negative) Urine Glucose (UA) Negative (Negative) mg/dL Urine Ketones Negative (Negative) Urine Blood Negative (Negative) Urine Nitrite Negative (Negative) Urine Bilirubin Negative (Negative) Urine Urobilinogen 1.0 A (0.2) mg/dL Ur Leukocyte Esterase Trace A (Negative) U Hyaline Cast (Auto) NONE SEEN (0-2) /LPF Urine Microscopic RBC 0-2 (0-5) /HPF Urine Microscopic WBC 0-2 (0-5) /HPF Ur Epithelial Cells None Seen (None Seen) /HPF Urine Bacteria None Seen (None Seen) /HPF Urine Culture Reflexed NO (NO) 08/17/22 Range/Units 10:20 WBC 6.1 (4.0-10.5) x10^3/uL RBC 3.06 L (4.1-5.4) x10^6/uL Hgb 10.1 L (12.0-16.0) g/dL Hct 32.2 L (35-47) % MCV 105.2 H (78-100) fL MCH 33.0 H (26-32) pg MCHC 31.4 L (32-36) g/dL RDW 14.6 H (11.5-14.0) % Plt Count 266 (150-450) x10^3/uL MPV 9.8 (7.5-11.0) fL Sodium (137-145) mmol/L Potassium (3.5-5.1) mmol/L Chloride (98-107) mmol/L Carbon Dioxide (22-30) mmol/L Anion Gap (5-15) MEQ/L BUN (7-17) mg/dL Creatinine (0.52-1.04) mg/dL Estimated GFR ML/MIN Glucose (74-106) mg/dL Calcium (8.4-10.2) mg/dL Total Bilirubin (0.2-1.3) mg/dL AST (14-36) U/L ALT (0-35) U/L Alkaline Phosphatase (38-126) U/L Troponin I (0.000-0.034) ng/mL Serum Total Protein (6.3-8.2) g/dL Albumin (3.5-5.0) g/dL Urine Color (Yellow) Urine Appearance (Clear) Urine pH (4.6-8.0) Ur Specific Paicines (1.005-1.030) Urine Protein (Negative) Urine Glucose (UA) (Negative) mg/dL Urine Ketones (Negative) Urine Blood (Negative) Urine Nitrite (Negative) Urine Bilirubin (Negative) Urine Urobilinogen (0.2) mg/dL Ur Leukocyte Esterase (Negative) U Hyaline Cast (Auto) (0-2) /LPF Urine Microscopic RBC (0-5) /HPF Urine Microscopic WBC (0-5) /HPF Ur Epithelial Cells (None Seen) /HPF Urine Bacteria (None Seen) /HPF Urine Culture Reflexed (NO) - Progress Progress: improved Progress Note: 08/17/22 11:58 82 years old female with history of atrial fibrillation on Eliquis, hypertension, hyperlipidemia presented in the ER after she fell on her porch step and got hit on the left forehead/maxilla. Patient reports mild to moderate sharp pain with palpation and no difficulty movements of left eyeball. Denies any loss of consciousness. No numbness tingling weakness of extremities. No difficulty speech or visual symptoms. Patient does not report chest pain palpitations or shortness of breath, does report having dark stools. No dizzin ess or lightheadedness. C-collar is placed, she is given Tylenol for symptomatic relief, feeling better on reevaluation. Baseline work-up showed a hemoglobin of 10, patient does have some CKD, no recent comparison available as patient goes to [place] normally for blood work. CT head cervical spines are obtained. Chest x-ray reviewed by me negative for any acute cardiopulmonary/osseous findings, official report is pending. 08/17/22 13:14 CT cervical spine showed multiple degenerative changes/old findings and no acute fracture or subluxation. C-collar is removed and is able to move her neck in all directions without any limitations. CT head negative for intracranial bleed, questionable fracture left orbital roof, discussed with Dr. Sinclair neurosurgery, do not think patient needs any neurosurgery attention but recommended facial surgery consultation. Facial surgeon at is called. 08/17/22 14:[address] Robins ophthalmology [facility], reviewed health history, today's presentation, CT findings, recommended outpatient ophthalmology follow- up and do not think needs any emergent transfer. Patient does not have any brain herniation and is like hairline fracture which even is questionable. Recommended visual activity check which is 20 / 50 and per him if it is better than 20/60 patient can be discharged. I would give her follow-up for ophthalmology in [place] and Dr. Huerta will also see if he can see her in office next week. I have discussed lab work, imaging, recommendations of specialist with patient in detail and needs to outpatient follow-up which she understands and agrees with it. Patient did walk in the ER without any limitations. Later on patient/sister told that she has been taking iron pills and Pepto-Bismol and that makes her stool dark. She is not in any distress and no chest pain with ambulation or shortness of breath. She is stable for discharge. Discussed signs symptoms of worsening needing return to ER which she seems understanding. Discussed with Dr.: Other (Dr. Sinclair neurosurgery and Dr. Robins ophthalmology [facility]) Counseled pt/family regarding: lab results, diagnosis, need for follow-up, rad results Medical Desision Making - Independent Historian Additional History obtained from: Relative/friend - Discussion of managment Care discussed with:: specialist Reviewed:: Test results Agreed on:: need for follow-up Will see patient: In office - Diagnostic Testing Diagnostic test were ordered, analyzed, and reviewed by me: Yes Radiological Interpretation: Interpreted by me, Reviewed by me, Teleradiologist Report - Risk of complications The pt has a mod risk of morbidity or mortality based on: Need for minor surgical intervention in patient with know risk factors - Departure Departure Disposition: Home Clinical Impression: Orbital contusion, Orbital roof fracture, Fall Condition: Stable Critical Care Time: No Referrals: MARIELENA STUART MD [Primary Care Provider] - Follow up with PCP 2 days Instructions: Facial Fracture (DC), Head Injury in Adults (DC), Preventing Falls in Older Adults Additional Instructions: Take Tylenol as needed for pain. Follow-up with primary care and ophthalmology for reevaluation. Stay with responsible person for next 48 hours with frequent neurochecks and return to ER for any worsening. Intermittent ice application. Call for appointment [facility] [address] [place] [address]
[2022-08-17 12:41] LABS: ADD URINE CULTURE? NO (NO)
--- NOTE | 2022-08-17 12:42 | XRAY ---
CLINICAL HISTORY:Trauma, fell left frontal lobe hematoma, patient denies neck pain, on blood thinners. COMPARISON:None. TECHNIQUES:Axial non-contrast CT head examination performed with sagittal and coronal reformation. CTDI 53.92mGy, DLP 1016.25 mGy*cm. FINDINGS: Left periorbital and inferior frontal scalp soft tissue swelling noted no definite hematoma noted. underlying there is a lucent line seen in roof of left orbit (series 4 image 27/69) representing vascular groove or hairline fracture, follow up advised. No displaced skull base or vault fracture. No intra cranial hematoma. Involutional changes in brain parenchyma noted. Asymmetric prominence of left lateral ventricle, no hydrocephalus. Normal configuration or basal cisterns. No established territorial infarction or mass affect. Posterior fossa structures despite beam hardening artifacts grossly appear unremarkable. Mild changes of the bilateral chronic sphenoid and ethmoidal sinusitis noted. Mastoid air cells are clear. IMPRESSION: 1. Left periorbital and inferior frontal scalp soft tissue swelling noted no definite hematoma noted. 2. underlying there is a lucent line seen in roof of left orbit (series 4 image 27/69) represents vascular groove or hairline fracture, follow up advised. 3. No intracranial hematoma or displaced bony injury in skull vault or base and no established territorial infarction seen in brain parenchyma. Electronically Signed by: Mega Leavitt MD. (08/17/2022 11:38:03 SIDE SPLITTER)
--- NOTE | 2022-08-17 12:45 | XRAY ---
CLINICAL HISTORY:History of fall, denies neck pain. COMPARISON:None. TECHNIQUES:Thin axial CT of the cervical spine was performed with sagittal and coronal reconstructions without contrast. CTDI 24.43, DLP 559.98. FINDINGS: Alignment and osseous structures: Loss of lordosis indicates muscle spasm. Degenerative scoliotic curvature towards right suggests muscle spasm. There are ligamentous calcifications with osseous degeneration seen involving the dens with pannus formation, features can be associated with rheumatoid arthritis, clinical correlation advised for further evaluation. Step berg minimal / grade I anterior listhesis of C3 over C4, C4 over C5 vertebrae noted. Spondylodegenerative changes seen in cerivcal spine with multilevel osteophytes and facet joint arthropathic changes. Reduced disc height seen at C4-5, C5-6, and C6-7 levels. No fracture noted. Vertebral body heights are normal. The craniovertebral measures are unremarkable. Level by Level analysis. C2-C3: No central canal or neuroforaminal stenosis. C3-C4: No central canal or neuroforaminal stenosis. C4-C5: No central canal or neuroforaminal stenosis. C5-C6: 2.5 mm disc-osteophyte complex associated with mild ventral thecal effacement and bilateral foraminal narrowing. C6-C7: 2.5 mm disc-osteophyte complex associated with mild ventral thecal effacement and bilateral foraminal narrowing. IMPRESSION: 1. Cervical spondylosis with erosive changes at dens, for clinical correlation to exclude rheumatoid arthritis/CPPD. 2. Step berg minimal / grade I anterior listhesis of C3 over C4, C4 over C5 vertebrae noted. 3. C5-C6: 2.5 mm disc-osteophyte complex associated with mild ventral thecal effacement and bilateral foraminal narrowing. 4. C6-C7: 2.5 mm disc-osteophyte complex associated with mild ventral thecal effacement and bilateral foraminal narrowing. 5. No definite fracture seen. Electronically Signed by: Mega Leavitt MD. (08/17/2022 11:40:05 SKOOG OPERATOR)
[2022-08-17 13:46] VITALS: O2SAT 95
[2022-08-17 14:31] VITALS: BP 147/87; PULSE 86
--- NOTE | 2022-08-17 20:06 | XRAY ---
Indication: Status post fall. Comparison: December 09, 2021 Portable apical lordotic chest remains inflated and clear with incidental right apical calcified granuloma. Heart not enlarged. Bony thorax intact again with osteopenia and mild degenerative changes. No new/acute findings. Impression: Continued nonacute chest with chronic features.
== END 2022-08-17 14:49 | disposition home or self-care (01) ==
LOC: ED 09:09
DX: S02.122A Fracture of orbital roof, left side, initial encounter for closed fracture (principal); W10.8XXA Fall (on) (from) other stairs and steps, initial encounter; Y92.007 Garden or yard of unspecified non-institutional (private) residence as the place of occurrence of the external cause; E78.5 Hyperlipidemia, unspecified; I10 Essential (primary) hypertension; E11.9 Type 2 diabetes mellitus without complications; Z79.01 Long term (current) use of anticoagulants; Z79.899 Other long term (current) drug therapy
CPT/HCPCS: 36415; 70450; 71045; 72125; 80053; 81001; 84484; 85027; 93005; 99284; A9270-GY

== ENCOUNTER 2023-09-26 13:26 | Emergency (ER) | payer MEDICARE ==
[2023-09-26 13:41] VITALS: BP 156/71; PULSE 66; TEMP 98.6; O2SAT 97
[2023-09-26 14:00] LABS: Absolute Neutrophil Ct (ANC) 3.67 x10^3/uL (1.56-6.13); BASOPHIL % 0.3 % (0.1-1.2); Basophil (Absolute #) 0.02 x10^3/uL (0.01-0.08); Eosinophil % 3.6 % (0.7-5.8); Eosinophil (Absolute #) 0.23 x10^3/uL (0.04-0.36); Hematocrit 29.1 % (34.1-44.9); Hemoglobin 9.1 g/dL (11.2-15.7); IMMATURE GRAN # 0.01 x10^3u/L (0.001-0.031); IMMATURE GRAN % 0.2 % (0.001-0.429); Lymphocyte (Absolute #) 1.86 x10^3/uL (1.18-3.74); Lymphocytes % 29.5 % (19.3-51.7); Mean Cell Volume 94.2 fL (79.4-94.8); Mean Corpuscular Hemoglobin 29.4 pg (25.6-32.2); Mean Corpuscular Hgb Concent. 31.3 g/dL (32.2-35.5); Mean Platelet Volume 9.3 fL (9.4-12.3); Monocyte (Absolute #) 0.52 x10^3/uL (0.24-0.86); Monocytes % 8.2 % (4.7-12.5); Neutrophil % 58.2 % (34.0-71.1); Platelet Count 305 x10^3/uL (182-369); Red Blood Count 3.09 x10^6/uL (3.93-5.22); Red Cell Distribution Width 14.9 % (11.7-14.4); White Blood Count 6.3 x10^3/uL (3.98-10.04)
[2023-09-26 14:14] LABS: INR 1.1 (0.8-3.0); PROTIME 11.9 SECONDS (9.4-12.5); PTT 28.3 SECONDS (25.1-36.5)
--- NOTE | 2023-09-26 14:37 | ERPHSYRPT ---
- History of Present Illness Time Seen by Provider: 09/26/23 13:45 Source: patient Exam Limitations: no limitations Patient Subjective Stated Complaint: Pt had been on eliquis twice a day and was in the hospital getting a watchman inserted and when she was sent home she left with Plavix and continued taking it twice a day for the past 2 weeks not thinking that it was only 1/day Triage Nursing Assessment: Pt was brought to the ER by her daughter, denies any pain, pulses normal, skin flushed but states that she has been outside, weak, denies difficulty breathing, scattered bruising on body, reports that she gets iron infusions on --she has completed 2/ thus far, doesn't appear to be in any distress Physician History: 83yo f presents for improper use of her medication. Pt states she had a watchmen procedure for afib and was switched from BID eliquis to once daily plavix. Pt reports for the past 2 wks she has been taking 2 plavix tablets per day like she was taking her eliquis. Pt denies any falls, denies any blood in stool, denies bloody emesis or bloody sputum. Pt denies any cp, soa, n/v/abdominal pain. Pt has been receiving iron infusions for low hgb following her procedure. Timing/Duration: week(s) (2) Allergies/Adverse Reactions: aspirin Allergy (Mild, Verified 09/26/23 13:42) celecoxib [From Celebrex] Allergy (Mild, Verified 09/26/23 13:42) codeine [Codeine] Allergy (Mild, Verified 09/26/23 13:42) Sulfa (Sulfonamide Antibiotics) [Sulfa(Sulfonamide Antibiotics)] Allergy (Mild, Verified 09/26/23 13:42) Iodinated Contrast Media [Iodinated Contrast- Oral and IV Dye] Allergy (Verified 09/26/23 13:42) Home Medications: Rosuvastatin Calcium [Crestor] 10 mg PO HS 09/30/16 [History] Metoprolol Succinate 25 mg PO BID 08/17/22 [History] Omeprazole 20 mg PO DAILY 08/17/22 [History] PANTOPRAZOLE 40 mg Tablet [Protonix 40MG Tablet] 40 mg PO DAILY 08/17/22 [History] Allopurinol 100 mg [Zyloprim 100 mg] 100 mg PO DAILY 09/26/23 [History] Clopidogrel Bisulfate [Clopidogrel] 75 mg PO DAILY 09/26/23 [History] Cyanocobalamin 1000 Mcg/ml [Cyanocobalamin B-12 1000 MCG/ML] 1,000 mcg IJ UD 09/26/23 [History] Escitalopram Oxalate 5 mg PO DAILY 09/26/23 [History] Ezetimibe 10 mg [Zetia 10 MG] 10 mg PO DAILY 09/26/23 [History] Furosemide 40 mg [Lasix 40 MG] 40 mg PO DAILY 09/26/23 [History] Montelukast Sodium 10 mg [Singulair 10 MG] 10 mg PO DAILY 09/26/23 [History] Hx Tetanus, Diphtheria Vaccination/Date Given: Yes (2016) Hx Influenza Vaccination/Date Given: No Hx Pneumococcal Vaccination/Date Given: No Travel Risk - International Travel Have you traveled outside of the country in past 3 weeks: No - Emerging Infectious Disease Are you exhibiting symptoms associated with any current EIDs: No - Review of Systems Constitutional: No Symptoms Respiratory: No Symptoms Cardiac: No Symptoms Abdominal/Gastrointestinal: No Symptoms Genitourinary Symptoms: No Symptoms Neurological: No Symptoms - Past Medical History Pertinent Past Medical History: Yes Neurological History: Seizures ENT History: Other Cardiac History: Arrhythmia, Coronary Artery Disease, High Cholesterol, Hypertension Respiratory History: Bronchitis Endocrine Medical History: Diabetes Type II Musculoskeletal History: Arthritis, Fractures GI Medical History: GERD History: Other Psycho-Social History: Anxiety, Depression Female Reproductive Disorders: No Pertinent History Other Medical History: SURGICAL HISTORY: 2 HEART CATHERIZATIONS WITH STENT PLACEMENT, LUMBAR FUSION 2007, RIGHT EYE SURGERY (POST INCIDENT), ORIF ON EACH ANKLE (DIFFERENT OCCASIONS), GALLBLADDER REMOVED. MEDICAL HISTORY: KIDNEY DISEASE - Past Surgical History Past Surgical History: Yes Neuro Surgical History: No Pertinent History Cardiac: Cardiac Catheterization, Cardiac Stent Respiratory: No Pertinent History Gastrointestinal: Cholecystectomy Genitourinary: No Pertinent History Musculoskeletal: Joint Replacement Female Surgical History: Hysterectomy Other Surgical History: BACK SURGERY X4 - Social History Smoking Status: Never smoker Exposure to second hand smoke: No Drug Use: none Patient Lives Alone: No - Social Determinants of Health Will the patient participate in the screening: Yes Do you worry about a steady place to live?: No Do you have any problems with any of the following?: No known problems In the past 12 months,have you had to go without utilities?: No Transportation Issues: No Has anyone in your support network made you feel unsafe?: No Have you or anyone in your house had to go without enough: No - Nursing Vital Signs Nursing Vital Signs: Initial Vital Signs Temperature 98.6 F 09/26/23 13:33 Pulse Rate 66 09/26/23 13:33 Blood Pressure 156/71 09/26/23 13:33 O2 Sat by Pulse Oximetry 97 09/26/23 13:33 Pain Scale Pain Intensity 0 - Physical Exam General Appearance: no apparent distress, alert Respiratory Exam: normal breath sounds, lungs clear, airway intact, No chest tenderness, No respiratory distress Cardiovascular Exam: regular rate/rhythm, normal heart sounds, normal peripheral pulses Gastrointestinal/Abdomen Exam: soft, No tenderness, No distention Neurologic Exam: alert, oriented x 3, cooperative Skin Exam: normal color, warm, dry, other (several small areas of ecchymosis on b/l forearms) SpO2 Interpretation: normal SpO2: 97 O2 Delivery: Room Air Ordered Tests: Active Orders 24 hr Category Date Time Status CBC W DIFF Stat Lab 09/26/23 13:50 Completed PROTIME WITH INR Stat Lab 09/26/23 13:50 Completed PTT Stat Lab 09/26/23 13:50 Completed Lab/Rad Data: Laboratory Result Diagrams 09/26/23 13:50 Laboratory Results 09/26/23 09/26/23 Range/Units 13:50 13:50 WBC 6.3 (3.98-10.04) x10^3/uL RBC 3.09 L (3.93-5.22) x10^6/uL Hgb 9.1 L (11.2-15.7) g/dL Hct 29.1 L (34.1-44.9) % MCV 94.2 (79.4-94.8) fL MCH 29.4 (25.6-32.2) pg MCHC 31.3 L (32.2-35.5) g/dL RDW 14.9 H (11.7-14.4) % Plt Count 305 (182-369) x10^3/uL MPV 9.3 L (9.4-12.3) fL Gran % 58.2 (34.0-71.1) % Immature Gran % (Auto) 0.2 (0.001-0.429) % Nucleat RBC Rel Count 0.0 (0.00-0.2) % Eos # (Auto) 0.23 (0.04-0.36) x10^3/uL Immature Gran # (Auto) 0.01 (0.001-0.031) x10^3u/L Absolute Lymphs (auto) 1.86 (1.18-3.74) x10^3/uL Absolute Monos (auto) 0.52 (0.24-0.86) x10^3/uL Absolute Nucleated RBC 0.00 (0.00-0.012) x10^3u/L Lymphocytes % 29.5 (19.3-51.7) % Monocytes % 8.2 (4.7-12.5) % Eosinophils % 3.6 (0.7-5.8) % Basophils % 0.3 (0.1-1.2) % Absolute Granulocytes 3.67 (1.56-6.13) x10^3/uL Basophils # 0.02 (0.01-0.08) x10^3/uL PT 11.9 (9.4-12.5) SECONDS INR 1.10 (0.8-3.0) APTT 28.3 (25.1-36.5) SECONDS - Progress Progress: unchanged Progress Note: 09/26/23 14:37 Discussed pt case w/ community relations representative pharmacist - recommends no further intervention, instructed to have pt monitor closely for GI bleeding hgb 9.1 (10.1 in 2022) PT, INR, PTT wnl no signs of GI bleed - pt denies hematochezia, hematemesis plan for dc home can resume taking plavix once daily as scheduled instructed to call party plan sales agent's office to inform of medication issue Monitor closely for bloody stools Return to ED if: develop weakness, fall, develop blood in stool, develop bloody vomit, start to cough up blood, develop confusion or headaches Counseled pt/family regarding: lab results, diagnosis, need for follow-up Medical Desision Making - Risk of complications Low Risk: Low risk of morbidity from additional dx testing or treatment - Departure Departure Disposition: Home Clinical Impression: Overuse of medication Condition: Stable Critical Care Time: No Referrals: ROSELINE DIAS DO [Primary Care Provider] - Follow up/PCP as directed Additional Instructions: plan for dc home call PCP (Dr Dias) for f/u appt this week can resume taking plavix once daily as scheduled instructed to call party plan sales agent's office to inform of medication issue Monitor closely for bloody stools Return to ED if: develop weakness, fall, develop blood in stool, develop bloody vomit, start to cough up blood, develop confusion or headaches
== END 2023-09-26 14:53 | disposition home or self-care (01) ==
LOC: ED 13:26
DX: Z03.6 Encounter for observation for suspected toxic effect from ingested substance ruled out (principal); E78.5 Hyperlipidemia, unspecified; I10 Essential (primary) hypertension; E11.9 Type 2 diabetes mellitus without complications; Z79.02 Long term (current) use of antithrombotics/antiplatelets; Z79.899 Other long term (current) drug therapy
CPT/HCPCS: 36415; 85025; 85610; 85730; 99281

== ENCOUNTER 2023-11-21 16:55 | Emergency (ER) | payer MEDICARE ==
[2023-11-21 17:10] VITALS: TEMP 97.9; O2SAT 99
[2023-11-21] MEDS ORDERED: ARZOL Silver Nitrate Applicator TP ONE (17:23)
[2023-11-21] MEDS: ARZOL Silver Nitrate Applicator TP ONE (17:28)
[2023-11-21 17:39] VITALS: BP 186/107; PULSE 64; RESP 18
--- NOTE | 2023-11-21 17:45 | ERPHSYRPT ---
- History of Present Illness Time Seen by Provider: 11/21/23 16:58 Source: patient, family Exam Limitations: no limitations Patient Subjective Stated Complaint: Pt has a pinpoint spot on the back of her right ankle that won't stop bleeding Triage Nursing Assessment: Pt brought to the ER by her daughter, hypertensive, denies pain, pinpoint spot on back of right ankle that has a continuous bleed, pt is on blood thinners, pt had a watchman placed in July, pulses normal, skin n/w/d, doesn't appear to be in any distress Physician History: 83-year-old female on Plavix presented in the ER with complains of right ankle area bleeding after she accidentally hit while walking against the edge of a bag and earlier today. Patient reports constant slow oozing despite applying pressure and elevation. No pain. Denies feeling dizzy or lightheaded. Patient blood pressure was not 220s on presentation but immediately improved to 160s. She had a history of hypertension but recently been taken off of all antihypertensive at [place]. He denies any chest pain palpitations or shortness of breath. Patient has multiple spider veins on ankle and foot with a small oozing just lateral to right Achilles. Firm pressure applied and areas cauterized with silver nitrate. Observed in the ER for almost 30 minutes with no rebleeding. Nonadherent dressing applied. Recommended blood pressure log and outpatient follow-up with primary care. Allergies/Adverse Reactions: aspirin Allergy (Mild, Verified 11/21/23 17:10) celecoxib [From Celebrex] Allergy (Mild, Verified 11/21/23 17:10) codeine [Codeine] Allergy (Mild, Verified 11/21/23 17:10) Sulfa (Sulfonamide Antibiotics) [Sulfa(Sulfonamide Antibiotics)] Allergy (Mild, Verified 11/21/23 17:10) Iodinated Contrast Media [Iodinated Contrast- Oral and IV Dye] Allergy (Verified 11/21/23 17:10) Home Medications: Metoprolol Succinate 25 mg PO BID 08/17/22 [History] Omeprazole 20 mg PO DAILY 08/17/22 [History] PANTOPRAZOLE 40 mg Tablet [Protonix 40MG Tablet] 40 mg PO BID 08/17/22 [History] Allopurinol 100 mg [Zyloprim 100 mg] 100 mg PO DAILY 09/26/23 [History] Clopidogrel Bisulfate [Clopidogrel] 75 mg PO DAILY 09/26/23 [History] Cyanocobalamin 1000 Mcg/ml [Cyanocobalamin B-12 1000 MCG/ML] 1,000 mcg IJ UD 09/26/23 [History] Escitalopram Oxalate 5 mg PO DAILY 09/26/23 [History] Ezetimibe 10 mg [Zetia 10 MG] 10 mg PO DAILY 09/26/23 [History] Furosemide 40 mg [Lasix 40 MG] 40 mg PO DAILY 09/26/23 [History] Montelukast Sodium 10 mg [Singulair 10 MG] 10 mg PO DAILY 09/26/23 [History] Zolpidem Tartrate 10 mg [Ambien 10 MG] 10 mg PO HS 11/21/23 [History] Hx Tetanus, Diphtheria Vaccination/Date Given: Yes (2016) Hx Influenza Vaccination/Date Given: No Hx Pneumococcal Vaccination/Date Given: No Travel Risk - International Travel Have you traveled outside of the country in past 3 weeks: No - Emerging Infectious Disease Are you exhibiting symptoms associated with any current EIDs: No - Review of Systems Constitutional: No Symptoms Eyes: No Symptoms Ears, Nose, & Throat: No Symptoms Respiratory: No Symptoms Cardiac: No Symptoms Abdominal/Gastrointestinal: No Symptoms Musculoskeletal: No Symptoms Neurological: No Symptoms Endocrine: No Symptoms Immunological/Allergic: No Symptoms - Past Medical History Pertinent Past Medical History: Yes Neurological History: Seizures ENT History: Other Cardiac History: Arrhythmia, Coronary Artery Disease, High Cholesterol, Hypertension Respiratory History: Bronchitis Endocrine Medical History: Diabetes Type II Musculoskeletal History: Arthritis, Fractures GI Medical History: GERD History: Other Psycho-Social History: Anxiety, Depression Female Reproductive Disorders: No Pertinent History Other Medical History: SURGICAL HISTORY: 2 HEART CATHERIZATIONS WITH STENT PLACEMENT, LUMBAR FUSION 2007, RIGHT EYE SURGERY (POST INCIDENT), ORIF ON EACH ANKLE (DIFFERENT OCCASIONS), GALLBLADDER REMOVED. MEDICAL HISTORY: KIDNEY DISEASE - Past Surgical History Past Surgical History: Yes Neuro Surgical History: No Pertinent History Cardiac: Cardiac Catheterization, Cardiac Stent Respiratory: No Pertinent History Gastrointestinal: Cholecystectomy Genitourinary: No Pertinent History Musculoskeletal: Joint Replacement Female Surgical History: Hysterectomy Other Surgical History: BACK SURGERY X4 - Social History Smoking Status: Never smoker Exposure to second hand smoke: No Drug Use: none Patient Lives Alone: No - Social Determinants of Health Will the patient participate in the screening: Yes Do you worry about a steady place to live?: No Do you have any problems with any of the following?: No known problems In the past 12 months,have you had to go without utilities?: No Transportation Issues: No Has anyone in your support network made you feel unsafe?: No Have you or anyone in your house had to go without enough: No - Nursing Vital Signs Nursing Vital Signs: Initial Vital Signs Temperature 97.9 F 11/21/23 17:02 Pulse Rate 60 11/21/23 17:02 Blood Pressure 221/88 11/21/23 17:02 O2 Sat by Pulse Oximetry 99 11/21/23 17:02 Pain Scale Pain Intensity 0 - Physical Exam General Appearance: no apparent distress, alert Eye Exam: PERRL/EOMI Ears, Nose, Throat Exam: normal ENT inspection Neck Exam: normal inspection, full range of motion Respiratory Exam: normal breath sounds, lungs clear Cardiovascular Exam: regular rate/rhythm, normal heart sounds Gastrointestinal/Abdomen Exam: soft, normal bowel sounds, No tenderness Extremity Exam: other (Spider veins with superficial cut right ankle behind the lateral malleolus, lateral to Achilles. Slow oozing.) Skin Exam: normal color SpO2 Interpretation: normal SpO2: 99 O2 Delivery: Room Air Procedures - Laceration/Wound Repair Right Ankle Time of Procedure: 17:44 Wound Location: foot Wound Length (cm): 0.2 Wound's Depth, Shape: superficial Wound Explored: clean Irrigated: Yes Hibiclens Prep: Yes Sterile Dressing Applied?: Yes Progress: 11/21/23 17:44 Silver nitrate cauterization done. Ordered Tests: Medication Summary Discontinued Medications Generic Name Dose Route Start Last Admin Trade Name Freq PRN Reason Stop Dose Admin Silver Nitrate Confirm 11/21/23 17:23 Silver Nitrate 1 Pkt Each Administered 11/21/23 17:24 Dose 1 pkt TP .STK-MED ONE Silver Nitrate 1 pkt 11/21/23 17:28 11/21/23 17:28 Silver Nitrate 1 Pkt Each TP 11/21/23 17:29 1 pkt STAT ONE Administration - Progress Progress: improved Progress Note: 11/21/23 17:44 83-year-old female on Plavix presented in the ER with complains of right ankle area bleeding after she accidentally hit while walking against the edge of a bag and earlier today. Patient reports constant slow oozing despite applying pressure and elevation. No pain. Denies feeling dizzy or lightheaded. Patient blood pressure was not 220s on presentation but immediately improved to 160s. She had a history of hypertension but recently been taken off of all antihypertensive at [place]. He denies any chest pain palpitations or shortness o f breath. Patient has multiple spider veins on ankle and foot with a small oozing just lateral to right Achilles. Firm pressure applied and areas cauterized with silver nitrate. Observed in the ER for almost 30 minutes with no rebleeding. Nonadherent dressing applied. Recommended blood pressure log and outpatient follow-up with primary care. Counseled pt/family regarding: diagnosis, need for follow-up Medical Desision Making - Diagnostic Testing Diagnostic test were ordered, analyzed, and reviewed by me: No - Risk of complications The pt has a mod risk of morbidity or mortality based on: Need for minor surgical intervention in patient with know risk factors - Departure Departure Disposition: Home Clinical Impression: Superficial laceration of ankle Condition: Stable Critical Care Time: No Referrals: ROSELINE DIAS, [Primary Care Provider] - Follow up with PCP 1 day Instructions: Varicose Veins (DC) Additional Instructions: Keep it clean. Apply bacitracin as needed. Monitor your blood pressure regularly, keep a log and follow-up with PCP for reevaluation. Return to ER for any worsening of bleeding, intractable headache, chest pain palpitations, shortness of breath or if having any visual disturbance etc.
== END 2023-11-21 17:47 | disposition home or self-care (01) ==
LOC: ED 16:55
DX: S91.011A Laceration without foreign body, right ankle, initial encounter (principal); W22.09XA Striking against other stationary object, initial encounter; Y93.01 Activity, walking, marching and hiking; E78.5 Hyperlipidemia, unspecified; I10 Essential (primary) hypertension; E11.9 Type 2 diabetes mellitus without complications; Z79.02 Long term (current) use of antithrombotics/antiplatelets; Z79.899 Other long term (current) drug therapy
CPT/HCPCS: 99281; A9270-GY

== ENCOUNTER 2024-03-22 16:11 | Emergency (ER) | payer MEDICARE ==
[2024-03-22 16:37] VITALS: PULSE 62; RESP 18; TEMP 97.2; O2SAT 98
[2024-03-22] MEDS ORDERED: ULTRAM 50 MG ONE (17:01)
[2024-03-22] MEDS ORDERED: TYLENOL 325 MG ONE (17:02)
--- NOTE | 2024-03-22 17:07 | XRAY ---
Negation: Status post fall. Multiple contiguous axial images obtained through the head without contrast. Comparison: August 09, 2022 New small right frontal scalp hematoma. Normal appearing brain parenchyma, ventricles, and bony calvarium for patient's age. Visualized paranasal sinuses and mastoid air cells are clear. Impression: Right frontal scalp hematoma. Normal CT head without contrast exam.
--- NOTE | 2024-03-22 17:09 | XRAY ---
Negation: Status post fall. Multiple contiguous axial images obtained through the facial bones. Sagittal and coronal reformatted images obtained. Comparison: None Small right frontal scalp hematoma. No acute fracture, suspicious bony lesions, or radiopaque foreign body. Obits including roof, owen, and floors intact. Paranasal sinuses and nasal passages are clear. Patient is edentulous. Visualized noncontrasted soft tissues unremarkable. CT head and CT cervical spine reported separately. Impression: Right frontal scalp hematoma. Normal CT facial bones.
--- NOTE | 2024-03-22 17:13 | XRAY ---
Negation: Status post fall. Multiple contiguous axial images obtained through the cervical spine. Sagittal and coronal reformatted images obtained. Comparison: August 09, 2022 Axial images again negative for acute fracture, suspicious bony lesions, or spinal canal stenosis. Stable osteopenia and mild/moderate multilevel degenerative spondylosis. Sagittal and coronal reformatted images again demonstrates lordotic reversal, 2 mm anterolisthesis C4 on C5, and mild C4-C7 disc space narrowing. No acute compression fracture or jumped facet. Normal appearing cranial cervical junction. Visualized noncontrasted soft tissues again demonstrates mild bilateral carotid calcifications. Lung apices clear. CT head reported separately. Impression: Again osteopenia, multilevel degenerative spondylosis, grade 1 C4 listhesis, lordotic reversal, and bilateral carotid calcifications. No new/acute abnormalities.
[2024-03-22] MEDS: TYLENOL 325 MG PO STA (17:14)
[2024-03-22] MEDS: ULTRAM 50 MG PO ONE (17:14)
--- NOTE | 2024-03-22 17:15 | ERPHSYRPT ---
- History of Present Illness Time Seen by Provider: 03/22/24 16:33 Source: patient, family Exam Limitations: no limitations Patient Subjective Stated Complaint: pt here for a fall today, she states she thinks she lost her balance, pt has frequent falls. co pain to right knee, and right side of face. no loc Triage Nursing Assessment: pt alert, arrived per wc, resp easy, skin w/d/p, has contusion to right side of face, large contusion to right knee, leg elevated and ice applied, yellow bruising to left side of face, bruising to left arm Physician History: 83-year-old female with history of frequent falls, got up from recliner to pickle sorter her phone, lost balance and fell, hit her right forehead, knee and shoulder. Has swelling right forehead with no difficulty movements of eyeball. Also has some abrasion and swelling of bridge of nose. Swelling of right knee with a small hematoma and difficulty ambulation. Denies any loss of consciousness. No chest pain palpitations or shortness of breath, numbness tingling or focal weakness before or after the fall. Allergies/Adverse Reactions: aspirin Allergy (Mild, Verified 03/22/24 16:32) celecoxib [From Celebrex] Allergy (Mild, Verified 03/22/24 16:32) codeine [Codeine] Allergy (Mild, Verified 03/22/24 16:32) Sulfa (Sulfonamide Antibiotics) [Sulfa(Sulfonamide Antibiotics)] Allergy (Mild, Verified 03/22/24 16:32) Iodinated Contrast Media [Iodinated Contrast- Oral and IV Dye] Allergy (Verified 03/22/24 16:32) hydrocodone Adverse Reaction (Verified 03/22/24 16:33) morphine Adverse Reaction (Verified 03/22/24 16:33) Home Medications: Metoprolol Succinate 25 mg PO BID 08/17/22 [History] Omeprazole 20 mg PO DAILY 08/17/22 [History] PANTOPRAZOLE 40 mg Tablet [Protonix 40MG Tablet] 40 mg PO BID 08/17/22 [History] Allopurinol 100 mg [Zyloprim 100 mg] 100 mg PO DAILY 09/26/23 [History] Clopidogrel Bisulfate [Clopidogrel] 75 mg PO DAILY 09/26/23 [History] Cyanocobalamin 1000 Mcg/ml [Cyanocobalamin B-12 1000 MCG/ML] 1,000 mcg IJ UD 09/26/23 [History] Escitalopram Oxalate 5 mg PO DAILY 09/26/23 [History] Ezetimibe 10 mg [Zetia 10 MG] 10 mg PO DAILY 09/26/23 [History] Furosemide 40 mg [Lasix 40 MG] 40 mg PO DAILY 09/26/23 [History] Montelukast Sodium 10 mg [Singulair 10 MG] 10 mg PO DAILY 09/26/23 [History] Zolpidem Tartrate 10 mg [Ambien 10 MG] 10 mg PO HS 11/21/23 [History] Hx Tetanus, Diphtheria Vaccination/Date Given: Yes (2016) Hx Influenza Vaccination/Date Given: Yes Hx Pneumococcal Vaccination/Date Given: No Immunizations Up to Date: Yes Travel Risk - International Travel Have you traveled outside of the country in past 3 weeks: No - Emerging Infectious Disease Are you exhibiting symptoms associated with any current EIDs: No - Review of Systems Constitutional: No Symptoms Eyes: Other (Swelling right forehead) Ears, Nose, & Throat: Nose Pain Respiratory: No Symptoms, Cough Cardiac: No Symptoms Abdominal/Gastrointestinal: No Symptoms Genitourinary Symptoms: No Symptoms Musculoskeletal: Fall, Injury, Joint Pain Skin: No Symptoms Neurological: Headache Psychological: No Symptoms Hematologic/Lymphatic: No Symptoms Immunological/Allergic: No Symptoms - Past Medical History Pertinent Past Medical History: Yes Neurological History: Seizures ENT History: Other Cardiac History: Arrhythmia, Coronary Artery Disease, High Cholesterol, Hypertension Respiratory History: Bronchitis Endocrine Medical History: Diabetes Type II Musculoskeletal History: Arthritis, Fractures GI Medical History: GERD History: Other Psycho-Social History: Anxiety, Depression Female Reproductive Disorders: No Pertinent History Other Medical History: SURGICAL HISTORY: 2 HEART CATHERIZATIONS WITH STENT PLACEMENT, LUMBAR FUSION 2007, RIGHT EYE SURGERY (POST INCIDENT), ORIF ON EACH ANKLE (DIFFERENT OCCASIONS), GALLBLADDER REMOVED. MEDICAL HISTORY: KIDNEY DISEASE - Past Surgical History Past Surgical History: Yes Neuro Surgical History: No Pertinent History Cardiac: Cardiac Catheterization, Cardiac Stent Respiratory: No Pertinent History Gastrointestinal: Cholecystectomy Genitourinary: No Pertinent History Musculoskeletal: Joint Replacement Female Surgical History: Hysterectomy Other Surgical History: BACK SURGERY X4 - Social History Smoking Status: Never smoker Exposure to second hand smoke: No Drug Use: none Patient Lives Alone: No - Social Determinants of Health Will the patient participate in the screening: Yes Do you worry about a steady place to live?: No Do you have any problems with any of the following?: No known problems In the past 12 months,have you had to go without utilities?: No Transportation Issues: No Has anyone in your support network made you feel unsafe?: No Have you or anyone in your house had to go without enough: No - Nursing Vital Signs Nursing Vital Signs: Initial Vital Signs Blood Pressure 198/75 03/22/24 16:31 O2 Sat by Pulse Oximetry 97 03/22/24 16:31 Pain Scale Pain Intensity 8 - Eldred Coma Score Best Eye Response (Marlon): (4) open spontaneously Best Verbal Response (Marlon): (5) oriented Best Motor Response (Marlon): (6) obeys commands Eldred Total: 15 - Physical Exam General Appearance: no apparent distress, alert Head Injury: swelling (Right forehead), tenderness Eye Exam: PERRL/EOMI, eyes nml inspection ENT Exam: airway nml, other (Nasal abrasion with mild tenderness) Neck Exam: supple, trachea midline, full range of motion, normal alignment Respiratory/Chest Exam: normal breath sounds, respiratory distress, No chest tenderness Cardiovascular Exam: normal heart sounds, regular rate/rhythm Gastrointestinal Exam: soft, normal bowel sounds, No tenderness Back Exam: normal inspection, normal range of motion Extremity Exam: pelvis stable, swelling (Right knee with some effusion. No obvious deformity. Mild tenderness and limited range of motion of right shoulder), tenderness, other Neurologic Exam: alert, oriented x 3, cooperative, patient advocate II-XII nml as tested, normal mood/affect, nml cerebellar function, sensation nml, No motor deficits Skin Exam: normal color SpO2 Interpretation: normal SpO2: 98 O2 Delivery: Room Air Ordered Tests: Active Orders 24 hr Category Date Time Status CERVICAL SPINE WO CONTRAST [CT] Stat Exams 03/22/24 16:32 Completed FACIAL BONES WO CONTRAST [CT] Stat Exams 03/22/24 16:32 Completed HEAD WITHOUT CONTRAST [CT] Stat Exams 03/22/24 16:32 Completed KNEE (3 VIEWS) Stat Exams 03/22/24 16:33 Completed SHOULDER Stat Exams 03/22/24 16:33 Completed Medication Summary Discontinued Medications Generic Name Dose Route Start Last Admin Trade Name Andrade PRN Reason Stop Dose Admin Acetaminophen 975 mg 03/22/24 16:58 03/22/24 17:14 Acetaminophen 325 Mg Tablet PO 03/22/24 16:59 975 mg STAT STA Administration Acetaminophen Confirm 03/22/24 17:02 Acetaminophen 325 Mg Tablet Administered 03/22/24 17:03 Dose 975 mg .ROUTE .STK-MED ONE Tramadol HCl 50 mg 03/22/24 16:58 03/22/24 17:14 Tramadol Hcl 50 Mg Tablet PO 03/22/24 16:59 50 mg STAT ONE Administration Tramadol HCl Confirm 03/22/24 17:01 Tramadol Hcl 50 Mg Tablet Administered 03/22/24 17:02 Dose 50 mg .ROUTE .STK-MED ONE - Progress Progress: improved Progress Note: 03/22/24 18:11 83-year-old is evaluated in the ER for mechanical fall with injury to the face, right shoulder and knee. Patient has nonfocal neuroexam. Given symptomatic treatment for pain, feeling better on reevaluation and able to ambulate in the ER without assistance CT head and cervical spine are negative for any acute trauma findings. CT facial bones negative for orbital fracture/nasal bone fracture. X-ray right shoulder and knee are negative for any acute findings. Does have some effusion/swelling in the right knee, will place in Kaushik wrap. Recommended continue with pain medications which she has at home tramadol. Recommended intermittent ice application and outpatient follow-up. Discussed signs symptoms of worsening needing return to ER which the seem understanding. Stable for discharge. Counseled pt/family regarding: diagnosis, need for follow-up, rad results Medical Desision Making - Independent Historian Additional History obtained from: Child, Family - Diagnostic Testing Diagnostic test were ordered, analyzed, and reviewed by me: Yes Radiological Interpretation: Reviewed by me - Risk of complications The pt has a mod risk of morbidity or mortality based on: Need for prescription drug management - Departure Departure Disposition: Home Clinical Impression: Knee contusion, Facial contusion, Fall, Right shoulder strain Condition: Stable Critical Care Time: No Referrals: ROSELINE DIAS DO [Primary Care Provider] - Follow up with PCP 1 day Instructions: Preventing falls in adults, Contusion (DC) Additional Instructions: Intermittent ice application. Take Tylenol/tramadol as needed. Follow-up with primary care for reevaluation. Use cane/walker for ambulation to avoid a fall. Return to ER for intractable headache, visual disturbance, numbness tingling focal weakness etc.
--- NOTE | 2024-03-22 17:19 | XRAY ---
Indication: Status post fall. 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 No acute findings.
--- NOTE | 2024-03-22 17:19 | XRAY ---
Indication: Status post fall. Comparison: None 3 view right knee demonstrates anterior medial soft tissue swelling/edema. Elsewhere osteopenia, minimal medial joint space narrowing, tiny fabella, and minimal vascular calcifications. No other bony, articular, or soft tissue abnormalities.
[2024-03-22 18:17] VITALS: BP 169/101
== END 2024-03-22 18:40 | disposition home or self-care (01) ==
LOC: ED 16:11
DX: S46.911A Strain of unspecified muscle, fascia and tendon at shoulder and upper arm level, right arm, initial encounter (principal); S80.01XA Contusion of right knee, initial encounter; S00.83XA Contusion of other part of head, initial encounter; W18.39XA Other fall on same level, initial encounter; Z91.81 History of falling; E78.5 Hyperlipidemia, unspecified; I10 Essential (primary) hypertension; E11.9 Type 2 diabetes mellitus without complications; Z79.02 Long term (current) use of antithrombotics/antiplatelets; Z79.899 Other long term (current) drug therapy
CPT/HCPCS: 70450; 70486; 72125; 73030; 73562; 99284; A9270-GY